=== PATIENT | male | born 1945 | race African-American/Black ===

== ENCOUNTER → 2022-01-02 08:10 | Outpatient (BNVA) | payer MEDICARE, SELFPAY | PROVIDERS: PCP Internal Medicine; Visit Provider Psychiatry & Neurology Neurology | DX: R55 Syncope and collapse (principal) | CPT/HCPCS: 99202 ==

== ENCOUNTER 2022-02-22 06:03 | Outpatient (REF) | payer MEDICARE, SELFPAY ==
--- NOTE | 2022-02-22 06:15 | EEG_ITS ---
This is a 16-channel EEG with an EKG lead. The patient is reported awake and drowsy during the tracing. Background EEG rhythm is low amplitude fast with at times about 10 hertz low amplitude posterior alpha with no obvious asymmetry or paroxysmal tendency. Photic stimulation does not produce any significant abnormality. Hyperventilation is not performed. Cardiac lead does not reveal any significant abnormality. IMPRESSION: Unremarkable EEG. MD MARGARETH Estrada/JAYRO / [id number]
== END 2022-02-22 06:04 | disposition home or self-care (01) ==
LOC: HO.NEURO 06:03
PROVIDERS: PCP Internal Medicine; Visit Provider Psychiatry & Neurology Neurology
DX: R55 Syncope and collapse (principal)
CPT/HCPCS: 95819

== ENCOUNTER 2025-02-07 09:35 | Outpatient (AMB) | payer MEDICARE, SELFPAY ==
--- NOTE | 2025-02-07 10:25 | A.PHYSOV_ITS ---
Vital Signs 02/07/25 10:28 Height 5 ft 9 in Weight 220 lb BMI 32.5 Intake Visit Reasons: F/U after injection 12/31/2024 Intake Note: Patient is a 79 year old male in office today for a follow up after Right L4 Transforaminal Epidural Injection on 12/31/24. Grey Roll Man Required: No Allergies lisinopril Adverse Reaction (Severe, Verified 02/07/25 10:26) Unconscious HPI Comments Details: History of Present Illness The patient is a 79-year-old individual presenting with chronic low back pain and knee pain. The patient reports having received an injection in the back in December, which provided some relief for the leg pain associated with the back issue. Patient underwent right L4 TFESI with 50% reduction of his pain. The patient has been experiencing numbness in the leg for approximately 18 years, which was partially alleviated by the injection. The patient also reports knee pain, which used to be severe but has improved with increased activity and gardening. The patient has not had a knee injection before but agreed to receive one during this visit. Shoulder pain is also present, with some limitation in movement, although it has improved over time. The patient performs exercises to maintain shoulder function and agreed to receive an injection for the shoulder as well. The patient has a history of diabetes mellitus, which can be affected by steroid injections. The patient is aware of the potential for increased blood sugar levels following the injections and has been managing glucose levels with tablets. Patient is requesting left glenohumeral joint injection as well as right knee intra-articular injection. Pain Description - Chronic low back pain with associated leg numbness for 18 years, partially relieved by injection - Knee pain, previously severe, improved with activity - Shoulder pain with limited movement, improved over time Procedure: Right L4 TF a 12/31/2024 50% reduction of his pain Left glenohumeral joint injection 02/07/2025 Right knee corticosteroid injection 02/07/2025 [facility] Medical History (Updated 02/07/25 @ 16:31 by ALEX Rees) Syncope and collapse Cardiomyopathy Obesity Combined hyperlipidemia Retinopathy HTN (hypertension) Diabetes Family History (Updated 01/02/22 @ 08:26 by Herminia Martinez CMA) Mother Diabetes Father No problems noted. Social History (Updated 02/03/25 @ 17:08 by Brisa Clements MA) Household Members: Spouse Alcohol intake: current Alcohol intake frequency: other Alcohol type: beer Patient Tobacco Use Status: Former Tobacco user Current occupational status: retired Review of Systems Narrative Review of Systems - Musculoskeletal: Reports chronic low back pain, knee pain, and shoulder pain with limited movement - Endocrine: Reports diabetes mellitus with current blood sugar level of 196 mg/dL Physical Exam Exam Exam: Physical Exam Examination of his left shoulder: He is tender to the lateral deltoid. He has improved range of motion of 160 degrees for flexion and 30 degrees external rotation. Negative empty can test. Lumbar Spine: Examination of his lumbar spine, there is no visible swelling or deformity. He is nontender to palpation to his lumbar facets. Full range of motion of his lumbar spine. He denies any increase in pain with facet loading. Special Tests: Lhermittes sign was negative Heel Toe walk is normal Left straight leg raise: Negative Right straight leg raise: Negative Special tests Zander test is negative Ganslen's test is negative SI Joint compression test negative Amarjit test negative Piriformis stretch is negative Lower Extremities: Full range of motion bilateral lower extremities. No calf pain or edema. Neuro: Sensation: Intact to lower extremities bilaterally Strength L2 (Psoas): 5/5 on the left and 5/5 on the right. L3 (Quads): 5/5 on the left and 5/5 on the right. L4 (Ant tibialis): 5/5 on the left and 5/5 on the right. L5 (EHL) 5/5 on the left and 5/5 on the right. S1 (Gastroc): 5/5 on the left and 5/5 on the right. DTR L4: (Patellar) Left 2 Right 2 S1: (Achilles) Left 1 Right 1 Babinski Downgoing No pathologic clonus. No involuntary movement. Vital Signs: BMI result Body Mass Index 32.5 Office Procedures AMB Knee Injection AMB Knee Injection Procedure Details: Right Knee injection: The risks, benefits and complications of the right knee injection were discussed with the patient including but not limited to increased serum glucose, infection, nerve pain, fat atrophy, pigment augmentation, bleedin g and pain. All questions were answered to the patient's satisfaction. Verbal consent was obtained. The patient was eager to proceed. Using aseptic technique with Betadine, ethyl chloride was then used to desensitize the skin. Using a 22-gauge needle 40 mg of Kenalog and 3 mL 2% lidocaine were injected into the knee joint. A Band-Aid was applied. Patient tolerated the procedure well without immediate complication. Postinjection instructions were given. Knee Injection - : Right All charges added?: Procedure code (CPT) selection complete AMB Shoulder Injection AMB Shoulder Injection Procedure Details: Left Glenohumeral joint injection: The patient was educated about risks, complications and benefits including but not limited to increased serum glucose, infection, nerve damage, bleeding, tendon/ligament damage and pain. We agree with a glenohumeral injection is the next best step in the treatment plan. Verbal consent was obtained. Using aseptic technique, the skin was cleansed with Betadine. Ethyl chloride was used to desensitize the skin. Using a posterior approach, 40 mg of Kenalog and 3 mL 2% lidocaine were injected using a 25-gauge inch and a half needle into the joint. The patient tolerated the procedure well without immediate complication. Postinjection instructions were given. Shoulder Injection - : Left All charges added?: Procedure code (CPT) selection complete Office Meds Kenalog 40 mg/mL suspension for injection Performing Provider: ALEX Rees Performing Location: [facility] Administered by: ALEX Rees on 02/07/25 16:39 Dose Route Admin Location Dispensed Lot Number Expiration Date [facility] Machine Printer 40 mg intra-articular 1 mL [id number] [employer] Total Dispensed Waste 1 mL 0 % lidocaine (PF) 20 mg/mL (2 %) injection solution Performing Provider: ALEX Rees Performing Location: [facility] Administered by: ALEX Rees on 02/07/25 16:39 Dose Route Admin Location Dispensed Lot Number Expiration Date [facility] Machine Printer 60 mg intra-articular 50 mL [id number] Total Dispensed Waste 50 mL 0 % Kenalog 40 mg/mL suspension for injection Performing Provider: ALEX Rees Performing Location: [facility] Administered by: ALEX Rees on 02/07/25 16:37 Dose Route Admin Location Dispensed Lot Number Expiration Date [facility] Machine Printer 40 mg intra-articular 1 mL [id number] [employer] Total Dispensed Waste 1 mL 0 % lidocaine (PF) 20 mg/mL (2 %) injection solution Performing Provider: ALEX Rees Performing Location: [facility] Administered by: ALEX Rees on 02/07/25 16:37 Dose Route Admin Location Dispensed Lot Number Expiration Date [employer] Machine [employer]inter 60 mg intra-articular 5 mL [id number] Total Dispensed Waste 5 mL 0 % Assessment & Plan Assessment & Plan (1) Adhesive capsulitis of left shoulder: Code(s): M75.02 - Adhesive capsulitis of left shoulder Category: Medical (2) Osteoarthritis of right knee: Code(s): M17.11 - Unilateral primary osteoarthritis, right knee Category: Medical Qualifiers: Osteoarthritis type: primary Qualified Code(s): M17.11 - Unilateral primary osteoarthritis, right knee (3) Lumbar radiculopathy: Code(s): M54.16 - Radiculopathy, lumbar region Category: Medical Plan Pain Management - Affect: Pain impacts daily activities but is managed with injections and exercise - Analgesia: Injections provide relief; current pain levels are manageable - Adverse Effects: Potential for increased blood sugar levels due to injections - Activities of Daily Living: Patient remains active with gardening and exercises for shoulder mobility - Aberrant Drug Related Behaviors: None reported Plan Patient was informed and verbally consented to the use of an ambient scribe for clinic note documentation during this visit. 1. Chronic Low Back Pain The patient received an injection in December for chronic low back pain, which provided some relief for associated leg pain. The plan is to monitor the patient's response to the injection and consider further interventions if necessary. 2. Knee Pain The patient agreed to receive a knee injection during this visit to address the pain, which has improved with increased activity. The plan includes monitoring the patient's response to the injection and adjusting treatment as needed. 3. Shoulder Pain The patient agreed to receive a shoulder injection to manage pain and improve mobility. The plan is to assess the effectiveness of the injection and consider additional treatments if required. 4. Diabetes Mellitus The patient is aware of the potential for increased blood sugar levels following steroid injections and is managing glucose levels with tablets. The plan includes monitoring blood sugar levels closely and contacting the primary care physician if levels exceed 300 mg/dL. Thank you for allowing me to participate in the care of your patient. Orders: Orders AMB Shoulder Injection Today M75.02 - Adhesive capsulitis of left shoulder AMB Knee Injection Today M17.11 - Unilateral primary osteoarthritis, right knee Coding Level of Care Code Tele Est Pt Level 3 (33629) Diagnoses Adhesive capsulitis of left shoulder M75.02 Primary osteoarthritis of right knee M17.11 Osteoarthritis type: primary Lumbar radiculopathy M54.16 CPT Codes AMB Knee Injection - Hip/Bursa Injection - : Right ([id number]) AMB Shoulder Injection - Hip/Bursa Injection - : Left ([id number])
[2025-02-07 10:28] VITALS: BMI 32.5
--- OUTSIDE RECORDS SUMMARY | 2025-02-07 11:03 | XMS_ITS | Clinical Summary ---
Author Organization [facility] Address [address] [place] [address] Care Team Providers Care Feeder Switchboard Operator Name Role Phone Juan Carlos Moore MD Primary Care Provider [phone] Allergies Active Allergy Reactions Criticality Noted Date Comments Lisinopril 01/01/2022 Medications Medication Sig Dispensed Refills Start Date End Date Status omeprazole (PriLOSEC) 20 MG capsule Take 1 capsule (20 mg total) by mouth daily. 0 Active folic acid (FOLVITE) tablet 1 mg Take 1 tablet (1 mg total) by mouth daily. 0 Active insulin glargine (LANTUS SOLOSTAR) injection 100 units/mL Inject under the skin. 0 Active losartan (COZAAR) 100 MG tablet Take 1 tablet (100 mg total) by mouth daily. 0 Active atorvastatin (LIPITOR) tablet 20 mg Take 1 tablet (20 mg total) by mouth daily. 0 Active metFORMIN (GLUCOPHAGE) tablet 1000 mg Take 1 tablet (1,000 mg total) by mouth 2 (two) times a day with meals. 0 Active insulin lispro (HumaLOG) injection 100 units/mL Inject under the skin 3 (three) times a day before meals. 0 Active dulaglutide (TRULICITY) 1.5 MG/0.5ML subcutaneous pen-injector Inject under the skin. 0 Active dilTIAZem (CARDIZEM CD) 180 MG 24 hr capsule Take 1 capsule (180 mg total) by mouth daily. 0 Active furosemide (LASIX) 20 MG tablet Take 1 tablet (20 mg total) by mouth 2 (two) times a day. 0 Active finasteride (PROSCAR) 5 MG tablet Take 1 tablet (5 mg total) by mouth daily. 0 Active ondansetron (ZOFRAN) 4 MG tablet Take by mouth. 0 Active indapamide (LOZOL) 1.25 MG tablet Take 1 tablet (1.25 mg total) by mouth every morning. 0 Active sertraline (ZOLOFT) 50 MG tablet Take 1 tablet (50 mg total) by mouth daily. 0 Active spironolactone (ALDACTONE) 12.5 MG split tablet Take 2 split tablet (25 mg total) by mouth daily. 0 Active vitamin D3 (cholecalciferol) 25 MCG (1000 UT) tablet Take 1 tablet (25 mcg total) by mouth daily. 0 Active [place]-3 Fatty Acids (Fish Oil) 1200 MG CPDR Take by mouth. 0 Active Multiple Vitamins-Minerals (Centrum Silver) tablet Take 1 tablet by mouth daily. 0 Active clotrimazole-betametha sone (LOTRISONE) cream Apply topically 2 (two) times a day. 0 Active Active Problems No known active problems Family History Medical History Relation Name Comments Diabetes Mother Hypertension Mother Relation Name Status Comments Mother Social History Tobacco Use Types Packs/Day Years Used Date Smoking Tobacco: Former Cigarettes 0.3 Smokeless Tobacco: Never Alcohol Use Standard Drinks/Week Comments Yes 1 (1 standard drink = 0.6 oz pur e alcohol) Sex and Gender Information Value Date Recorded Sex Assigned at Not on file Gender Identity Not on file Sexual Orientation Not on file Job Start Date Occupation Industry Not on file Not on file Not on file Last Filed Vital Signs Vital Sign Reading Time Taken Comments Blood Pressure 118/57 05/16/2022 9:19 AM EST Pulse 84 05/16/2022 9:19 AM EST Temperature 36.7 C (98 F) 05/16/2022 9:19 AM EST Respiratory Rate - - Oxygen Saturation 98% 05/16/2022 9:19 AM EST Inhaled Oxygen Concentration - - Weight 101.2 kg (223 lb 3.2 oz) 05/16/2022 9:19 AM EST Height 175.3 cm (5' 9 ) 05/16/2022 9:19 AM EST Body Mass Index 32.96 05/16/2022 9:19 AM EST Plan of Treatment Health Maintenance Due Date Last Done Comments Hepatitis C Screening 1945 Depression Screening 1957 BMI Counseling 1963 Preventative Health Evaluation 1963 Fall Risk Assessment 2010 RSV Adult > 60+ Yrs or (1 - 1-dose 75+ series) 2020 COVID-19 Vaccine ( season) 2024 08/20/2021, 12/11/2020, 05/16/2020, Additional history exists Influenza Vaccine (#1) 2024 2, 11/17/2018, 12/29/2017, Additional history exists DTap / Tdap / Td (3 - Td or Tdap) 08/29/2031 08/28/2021, 06/28/2011 Pneumococcal Vaccine Completed 06/28/2015, 06/28/19 12 Shingrix-Zoster Vaccine Completed 01/22/2022, 11/21 Hepatitis B Vaccines Aged Out No long er eligible based on patient's age to complete this topic RSV Ped < 20 months Aged Out No longe r eligible based on patient's age to complete this topic Care Teams Feeder Switchboard Operator Relationship Specialty Start Date End Date Juan Carlos Moore MD PCP - General Internal Medicine 02/27/22
--- OUTSIDE RECORDS SUMMARY | 2025-02-07 11:03 | XMS_ITS | Clinical Summary ---
Author Organization [address] [facility] Address [address] [place] [phone] Phone Care Team Providers Care Lead Electrician Name Role Phone Juan Carlos Moore MD Primary Care Provider [phone] Allergies Active Allergy Reactions Criticality Noted Date Comments Lisinopril 09/28/2012 Other Reaction(s): Numbness, tingling or swelling of the lips, tongue or mouth Medications cholecalciferol (VITAMIN D-3) 25 mcg (1,000 unit) tablet Take by mouth. Active timolol (TIMOPTIC) 0.5 % ophthalmic solution INSTILL 1 DROP INTO EACH EYE TWICE DAILY DIRECTED 06/26/19 24 Active blood-glucose meter kit To use to test blood sugar 02/27/20 16 Active blood sugar diagnostic (OneTouch Verio test strips) test strip USE 1 STRIP TO CHECK GLUCOSE 4 TIMES DAILY 400 each 02/19/20 24 Active carvediloL (COREG) 12.5 mg tablet TAKE 1 TABLET BY MOUTH TWICE DAILY WITH MEALS 180 tablet 2 03/18/19 25 Active finasteride (PROSCAR) 5 mg tablet Take 1 tablet by mouth once daily 90 tablet 1 04/13/19 25 Active insulin aspart (NovoLOG Flexpen U-100 Insulin) 100 unit/mL (3 mL) injection penIndications: Type II or unspecified type diabetes mellitus with ophthalmic manifestations, uncontrolled(25 0.52) (CMS/HCC V24, CMS/HCC V28) Inject 3 times a day with meals per scale: 90-119: 10 units;120-14 9: 20 units; 150-200: 22 units;201-25 0; 23 units; 251-300: 24 units; 301-350: 25 units; 351-400: 26 units, plus 3 extra units at dinner 15 mL 04/15/19 Active insulin degludec (TRESIBA FlexTouch U-200) 200 unit/mL (3 mL) CONCENTRATED injection pen 75 units in the morning and 65 units in the evening 45 mL 06/02/19 25 Active diclofenac (VOLTAREN) 1 % topical gel Apply 4 g topically 4 (four) times a day. 2 each 06/09/19 Active ketoconazole (NIZORAL) 2 % cream Apply topically 2 (two) times a day. 30 g 06/09/19 25 026 Active sertraline (ZOLOFT) 50 mg tablet Take 1 tablet (50 mg total) by mouth 1 (one) time each day. 90 tablet 07/02/19 25 Active dapagliflozin propanediol (FARXIGA) 10 mg tablet Take 1 tablet (10 mg total) by mouth 1 (one) time each day. 90 each 07/15/19 25 Active gabapentin (NEURONTIN) 100 mg capsule Take 1 capsule (100 mg total) by mouth at bedtime. 30 each 07/27/19 25 Active pen needle, diabetic 32 gauge x 5/32 needle USE 1 PEN NEEDLE FIVE TIMES DAILY 200 each 08/19/19 25 Active atorvastatin (LIPITOR) 20 mg tabletIndicatio ns:Hyperlipidem ia, unspecified Take 1 tablet (20 mg total) by mouth 1 (one) time each day. 90 tablet 08/31/19 25 Active metFORMIN (GLUCOPHAGE) 1,000 mg tablet Take 1 tablet by mouth twice daily 180 tablet 09/21/19 25 Active irbesartan (AVAPRO) 300 mg tablet Take 1 tablet by mouth once daily 90 tablet 09/21/19 25 Active folic acid (FOLVITE) 1 mg tablet Take 1 tablet by mouth once daily 90 tablet 1 09/21/19 25 Active omeprazole (PriLOSEC) [address] capsuleIndicati ons:Gastroesoph ageal reflux disease with esophagitis, unspecified whether hemorrhage,Naus ea Take 1 capsule (20 mg total) by mouth 1 (one) time each day. Do not crush or chew. 90 each 3 12/29/19 25 026 Active eplerenone (Inspra) 50 mg tablet Take 1 tablet (50 mg total) by mouth 1 (one) time each day in the evening. 90 each 01/13/20 25 Active acetaminophen Extra Strength 500 mg tablet TAKE 2 TABLETS BY MOUTH EVERY 6 HOURS NEEDED FOR MILD PAIN FOR UP TO 10 DAY 30 tablet 02/01/20 Active clotrimazole-be tamethasone (LOTRISONE) 1-0.05 % cream Apply topically 2 times daily. 03/29/19 12 Discontinued(Th erapy completed) eplerenone (INSPRA) 50 mg tablet Take 1 Tablet by mouth daily. 09/29/19 Discontinued(Th erapy completed) loratadine (CLARITIN) 10 mg tablet Take 1 Tablet by mouth daily. 03/24/19 24 025 Discontinued( erapy completed) insulin syringe-needle U-100 1/2 mL 27 gauge x 1/2 syringe 1 Device by Does not apply route 5 times daily. 11/02/19 21 025 Discontinued( erapy completed) indapamide (LOZOL) 1.25 mg tablet Take 1 tablet (1.25 mg total) by mouth 1 (one) time each day in the morning. 025 Discontinued( erapy completed) LORazepam (ATIVAN) 1 mg tablet TAKE 1 TABLET BY MOUTH ONE HOUR PRIOR TO MRI SCAN MAY REPEAT ONCE 08/03/19 25 025 Discontinued(Th erapy completed) eplerenone (INSPRA) 25 mg tablet Take 1 tablet by mouth once daily 90 tablet 1 08/12/19 25 Discontinued(Do se adjustment) tiZANidine (ZANAFLEX) 4 mg tablet Take 1 tablet (4 mg total) by mouth every 8 (eight) hours for 4 days. 12 each 08/27/19 25 025 Discontinued(Th erapy completed) acetaminophen (TYLENOL) 500 mg tablet Take 2 tablets (1,000 mg total) by mouth every 6 (six) hours if needed for mild pain for up to 10 days. 30 tablet 10/06/19 25 025 Discontinued loperamide (IMODIUM A-D) 2 mg tablet Take 1 tablet (2 mg total) by mouth 4 (four) times a day if needed for diarrhea. 120 tablet 12/08/19 25 025 Discontinued(Th erapy completed) Active Problems Problem Noted Date Diagnosed Date Candidiasis of esophagus ([facility] V24, [facility] V 28) 12/17/2023 Chronic gastritis 12/17/2023 Colon polyps 12/17/2023 Fatigue 12/17/2023 H. pylori infection 12/17/2023 Nausea and vomiting 12/17/2023 Anxiety 06/18/2023 Nocturia 06/18/2023 Recurrent major depressive d isorder, in full remission ([facility] V24) 06/18/2023 Seasonal allergies 06/18/2023 Cardiomyopathy ([facility] V24, [facility] V28) 2021 Overview (12/17/2023): Card MRI 11/2021 LVEF 45%, mild concentric LVH, mid septum fibrosis. No evidence of HCM or infiltrative cardiomyopathy. Last Assessment & Plan: I will repeat PYP and AL amyloid work-up. We will touch base with oncology team after result. CHF (congestive heart failure) ([facility] V24, [facility] V28) 10/11/2021 Overview (12/17/2023): Last Assessment & Plan: Euvolemic today. Continue low-dose furosemide. HFrEF (heart failure with re duced ejection fraction) ([facility] V24, [facility] V28) 08/13/2021 Overview (12/17/2023): Last Assessment & Plan: No evidence of volume overload. We will consider to switch losartan to Entresto. Shortness of breath on exertion 06/23/2020 Overview (12/17/2023): Last Assessment & Plan: Shortness of breath with exertion has been present for a few months. He had a multiple risk factors, especially with longstanding diabetes and hypertension. However like to schedule exercise nuclear perfusion stress test. He has no significant murmur by physical exam. He was reported to have moderate LVH from echo 7 years back. I would like to repeat another study to assess LVH and left ventricular diastolic function. Syncope 06/19/2020 Overview (12/17/2023): Last Assessment & Plan: I suspect syncope was related to the combination of increased vagal tone post urination and dehydration. Obesity (BMI 30-39.9) 09/02/2017 Hypertensive cardiopathy 06/02/2013 Overview (12/17/2023): Last Assessment & Plan: Recurrent multiple medications. Pre-ulcerative corn or callous 04/08/2012 Type II or unspecified type diabetes mellitus with ophthalmic manifestations, uncontrolled(250.52) ([facility] V24, CMS/[facility] V28) 11/11/2011 Diabetic retinopathy, nonpro liferative, mild (CMS/HCC V24, CMS/HCC V28) 11/11/2011 Overview (12/17/2023): MNPDR of left eye only per note of Dr. Ruiz on 06/25/2011. Microalbuminuria 11/11/2011 Tubular adenoma of colon 04/12/2011 Glaucoma 03/29/2011 HTN (hypertension) 03/29/2011 Overview (12/17/2023): Last Assessment & Plan: Well-controlled. Continue current regimen. Hyperlipidemia 03/29/2011 Encounters Date Type Department Care Team Description 01/07/2025 9:00 AM EDT Office Visit Orthopedic Surgery - [place] [address] 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 [address] [place] [phone] Vani Silva NP 11/16/2024 8:30 AM EDT Office Visit Endocrinology [address] [phone] Melissa Ortiz PA Type II or unspecified type diabetes mellitus with ophthalmic manifestations, uncontrolled(250.52) ([facility] V24, [facility] V28) (Primary Dx); Primary hypertension; Pure hypercholesterolemia from Last 3 Months Immunizations Immunization Administration Dates Next Due Influenza Quadravalent, 0.5m l (Fluzone High-dose) 65yo and older 12/09/2024,11/28/2023 Influenza trivalent, 0.5mL ( Fluzone High-dose) 65yo and older 12/01/2021,11/17/2018,12/29/2017,11/28,11/28/2015,11/25/2014 Influenza trivalent, with pr eservative (Fluzone; Afluria) 6mo and older 12/24/2013,11/17/2012,02/03/2012 Influenza, Unspecified 02/12/2021 Pfizer (ages 12 & older) Biv alent, COVID-19 01/01/2022 Pfizer SARS-CoV-2 COVID-19, mRNA, LNP-S, preservative free 11/28/2023,08/20/2021,12/11/2020,05/16,04/25/2020 Pneumococcal conjugate 13 va lent (Prevnar 13, PCV13) 2mo and older 06/28/2015 Pneumococcal polysaccharide 23 valent (Pneumovax 23) 2yo and older 06/28/2011 Td Tetanus diptheria (Tdvax) 7yo and older 08/28/2021 Tdap Tetanus diptheria acell ular pertussis (Boostrix; Adacel) 7yo and older 10/20/2016,06/28/2011 Zoster recombinant (Shingrix ) 19yo and older 01/22/2022,11/21/2021 Surgical History Surgery Date Site/Laterality Comments COLONOSCOPY 12/03/2010 PROCEDURE: HISTORICAL COLONOSCOPY; COMMENT: Dr Huitron: small tub adenoma@30cm OTHER SURGICAL HISTORY Left, -1986 PROCEDURE: IL OPTX PROX HUMERAL FX W/INT FIXJ RPR TUBEROSITY; COMMENT: also age 10 left arm Fx ?ulna?radius unknown COLONOSCOPY 03/05/2016 PROCEDURE: HISTORICAL COLONOSCOPY; COMMENT: Tomy; tubular adenomas x 2; poor prep. COLONOSCOPY 06/24/2016 PROCEDURE: HISTORICAL COLONOSCOPY; COMMENT: RBMG; no polyps. ESOPHAGOGASTRODUODENOSCOPY PROCEDURE: IL EGD TRANSORAL BIOPSY SINGLE/MULTIPLE; COMMENT: Performed on August 02, 2021 with colonoscopy COLONOSCOPY PROCEDURE: HISTORICAL COLONOSCOPY; COMMENT: Performed with EGD on August 02, 2021 Medical History Medical History Date Comments Type 2 diabetes mellitus (CM S/HCC V24, CMS/HCC V28) DX:Type 2 diabetes mellitus (HCC) Tubular adenoma DX:Tubular adeno ma HTN (hypertension) DX:HTN (hyper tension) Hyperlipidemia DX:Hyperlipidemi a Hypertensive cardiopathy DX:Hype rtensive cardiopathy Syncope DX:Syncope Glaucoma DX:Glaucoma Tubular adenoma of colon 04/12/2011 DX:Tubu lar adenoma of colon Humerus distal fracture left, age 10 DX:Humer us distal fracture 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 pylori infection DX:H. pylori infection Fatigue DX:Fatigue Chronic gastritis DX:Chronic gas tritis Nausea and vomiting DX:Nausea an d vomiting Lightheadedness DX:Lightheadedne ss Cardiomyopathy (CMS/HCC V24, CMS/HCC V28) DX:Cardiomyopathy (HCC) History of heart failure DX:Hist ory of heart failure Anxiety 06/18/2023 DX:Anxiety Nausea DX:Nausea Postural dizziness with presyncope DX:Postural dizziness with presyncope Family History Medical History Relation Name Comments Diabetes Brother 1 Diabetes Brother 2 Diabetes Brother 3 Diabetes Brother 4 Prostate cancer Father Diabetes Mother Hyperlipidemia Mother Hypertension Mother Diabetes Sister Hyperlipidemia Sister Breast cancer Neg Hx Relation Name Status Comments Brother 1 Brother 2 Brother 3 Brother 4 Daughter x4 1 Father (Age 79) couldn't u rinate ([place]) Maternal Grandfather (Age 116) Mother (Age 74) diabetes, HTN Sister Social History Tobacco Use Types Packs/Day Years Used Date Smoking Tobacco: Former Cigarettes 0.3 40.2 0 1975 - 06/28/2015 Smokeless Tobacco: Never Tobacco Cessation:Counseling Given: Not Answered Alcohol Use Standard Drinks/Week Comments Yes 2 (1 standard drink = 0.6 oz pur e alcohol) Housing Instability Answer Date Recorde d Are you worried that in the next 2 months you may not have stable housing? No 01/26/2024 Food Access & Nutrition Answer Date Rec orded Do you have access to a vari ety of food including fruits and vegetables? Yes 01/26/2024 Health Literacy Answer Date Recorded How often do you need to hav e someone help you when you read instructions, pamphlets, or other written material from your doctor or pharmacy? Never 01/26/2024 Caregiver: How often do you need to have someone help you when you read instructions, pamphlets, or other written material from your doctor or pharmacy? Not on file 01/26/2024 Financial Risk Answer Date Recorded How hard is it for you to pa y for the very basics like food, housing, medical care, and air conditioning / heating? Not very hard 01/26/2024 Transportation Answer Date Recorded Has the lack of transportati on kept you from meetings, work, or from getting things needed for daily living? No Has the lack of transportati on kept you from medical appointments or from getting medications? No 01/26/2024 Social Isolation Answer Date Recorded How often do you feel lonely or isolated from th ose around you? Never 01/26/2024 Food Risk Answer Date Recorded Within the past 12 months we worried whether our food would run out before we got money to buy more. Never true 01/26/2024 Within the past 12 months th e food we bought just didn't last and we didn't have money to get more. Never true 01/26/2024 Dependent Care Answer Date Recorded Do you need help finding or paying for care for your loved ones. For example, child and adolescent psychologist or elderly care for an older adult? No 01/26/2024 Education Answer Date Recorded Do you think completing more education or training, like finishing a GED, going to college, or learning a trade, would be helpful for you? No 01/26/2024 Employment and Income Answer Date Recor ded During the last four weeks, have you been actively looking for work? No 01/26/2024 Living Situation Answer Date Recorded What is your living situation? Unrecognized valu e 01/26/2024 Sex and Gender Information Value Date Recorded Sex Assigned at Not on file Legal Sex Male 12:13 AM EST Gender Identity Not on file Sexual Orientation Not on file Obstetrics History Last Filed Vital Signs Vital Sign Reading Time Taken Comments Blood Pressure 143/84 01/12/2025 10:47 AM EDT Pulse 60 11/16/2024 8:52 AM EDT 5 min Temperature 35.6 C (96 F) 11/16/2024 8:49 AM EDT Respiratory Rate 16 10/05/2024 12:35 PM EDT Oxygen Saturation 99% 08/26/2024 4:03 AM EDT Inhaled Oxygen Concentration - - Weight 98.5 kg (217 lb 3.2 oz) 11/16/2024 8:49 A M EDT Height 175.3 cm (5' 9 ) 11/16/2024 8:49 AM EDT Body Mass Index 32.07 11/16/2024 8:49 AM EDT Plan of Treatment Upcoming Encounters Date Type Department Care Team (Late st Contact Info) Description 02/16/2025 9:30 AM EST Office Visit Internal Medicine - [address] [phone] Juan Carlos Moore MD [address] [place] [phone] 02/24/2025 9:30 AM EST Office Visit Endocrinology [address] [phone] Melissa Ortiz PA [address] [place] [phone] 03/01/2025 9:00 AM EST Office Visit Orthopedic Surgery - [place] [address] [place] [phone] Jose M Lamb PA [address] [place] [address] 03/08/2025 11:30 AM EST Medication Management Adult Medicine [facility] [address] [place] [phone] Meagan Luong, PharmD [address] [place] [address] 05/11/2025 8:40 AM EST Office Visit Gastroenterology - [address] [phone] Vani Silva, EMILY [address] [phone] Health Maintenance Due Date Last Done Comments Diabetes: Annual Foot Exam 1955 Medicare Annual Wellness Visit 01/17/2024 01/16/2023 Depression Screening 03/17/2024 01/26/2024, 01/17/20 Diabetes: Annual Retina Eye Exam 12/29/2024 12/30/2023 Diabetes: Annual Urine Albumin-Creatinine Ratio (uACR) 01/25/2025 01/26/2024, 07/07/2023 Falls Risk Assessment 01/25/2025 01/26/2024, 023 Social Influencers of Health Screening 01/25/2025 01/26/2024 Diabetes: Blood Sugar Control Test (HGBA1C) 05/16/2025 11/16/2024, 07/12/2024, 01/26/2024, Additional history exists COVID-19 Vaccine ( season) 2025 12/09/2024, 11/28/2023, 03/02/2023, Additional history exists Diabetes: Annual GFR (Glomerular Filtration Rate) 08/26/2025 08/26/2024, 06/08/2024, 01/26/2024, Additional history exists Hypertension/CHF/CAD Annual BMP Blood Test 08/26/2025 08/26/2024, 06/08/2024, 01/26/2024, Additional history exists Colorectal Cancer Screening: Colonoscopy 08/02/2026 08/02/2021 Cholesterol Screening (Lipid Panel) 07/26/2029 07/26/2024, 01/26/2024, 07/07/2023 DTaP,Tdap,and Td Vaccines (4 - Td or Tdap) 08/29/2031 08/28/2021, 10/20/2016, 06/28/2011 Hepatitis C Screening Completed 02/13/2013 Pneumococcal Vaccine: 50+ Years Completed 06/28/2015, 06/28/2011 Zoster Vaccines Completed 01/22/2022, 11/21/2021 RSV Immunization Adult Patients Completed 07/08/2024 Influenza Vaccine Completed 12/09/2024, , 03/02/2023, Additional history exists HIB Vaccines Aged Out No longer eligi ble based on patient's age to complete this topic HPV Vaccines Aged Out No longer eligi ble based on patient's age to complete this topic Hepatitis A Vaccines Aged Out No long er eligible based on patient's age to complete this topic Hepatitis B Vaccines Aged Out No long er eligible based on patient's age to complete this topic IPV Vaccines Aged Out No longer eligi ble based on patient's age to complete this topic MMR Vaccines Aged Out No longer eligi ble based on patient's age to complete this topic Meningococcal ACWY Vaccine Aged Out N o longer eligible based on patient's age to complete this topic Meningococcal B Vaccine Aged Out No l onger eligible based on patient's age to complete this topic RSV Immunization Patients Under 20 months Aged Out No longer eligible based on patient's age to complete this topic Varicella Vaccines Aged Out No longer eligible based on patient's age to complete this topic Procedures Procedure Name Priority Date/Time Associated Diagnosis Comments IL ARTHROCENTESIS/ASPIRAT ION/INJECTION MAJOR JOINT/BURSA W/O U/S GUIDANCE Routine 01/07/2025 9:00 AM EDT 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 ([facility] V24, [facility] V28) Acute bursitis of left shoulder HEMOGLOBIN A1C Routine 11/16/2024 9:39 AM EDT Type II or unspecified type diabetes mellitus with ophthalmic manifestations, uncontrolled(250.52 ) ([facility] V24, [facility] V28) PROSTATE SPECIFIC ANTIGEN SCREEN Routine 11/16/2024 9:39 AM EDT Screening PSA (prostate specific antigen) COMPREHENSIVE METABOLIC PANEL STAT 08/26/2024 4:17 AM EDT LIPID PANEL WITH REFLEX TO DIRECT LDL Routine 07/26/2024 9:28 AM EDT Type II or unspecified type diabetes mellitus with ophthalmic manifestations, uncontrolled(250.52 ) (CMS/[facility] V24, [facility] V28) MICROALBUMIN CREATININE URINE RATIO Routine 01/26/2024 10:09 AM EST Type II or unspecified type diabetes mellitus with ophthalmic manifestations, not stated as uncontrolled(250.50 ) (CMS/[facility] V24, CMS/[facility] V28) DIABETES EYE EXAM Routine 12/30/2023 DEPRESSION SCREENING Routine 01/16/2023 FALLS RISK ASSESSMENT Routine 01/16/2023 COLONOSCOPY Routine 08/02/2021 HEPATITIS C SCREENING Routine 02/13/2013 from Last 3 Months or Most Recently Relevant to Health Maintenance Results * IL ARTHROCENTESIS/ASPIRATION/INJECTION MAJOR JOINT/BURSA W/O U/S GUIDANCE (01/07/2025 9:00 AM EDT) Jose M Mccray PA - 01/07/2025 9:00 AM EDT ALEX Ballesteros 01/07/2025 11:01 AM L Inj/Asp: L subacromial bursa Indications: pain Details: 22 G needle, posterior approach Medications: 40 mg triamcinolone acetonide 40 mg/mL Outcome: tolerated well, no immediate complications Site was prepped in standard fashion using alcohol swab, sterile technique was used to perform the injection, the patient tolerated the procedure well and a band-aid dressing was applied Informed Consent: Site: Left subacromial Laterality: Left Relevant images/test results available and reviewed: yes Health status cleared: Yes Procedure/treatment, purpose, treatment alternatives, risks/potential complications and benefits explained: yes Risk/complications/benefits details: Risk/complications/benefits details: Risks and benefits of corticosteroid injection were discussed, including risk of pain, bleeding, infection, tissue attenuation, tendon rupture, changes in skin color, and injury to surrounding structures such as arteries, veins and nerves. We also discussed the patient may develop worsening pain for a few days before having improvement in their symptoms. Patient questions answered: yes Patient agrees, verbalizes understanding, and wants to proceed: yes Consent given by: Patient Informed consent discussion completed by Physician/PANCHO with patient: Verbal Pre-procedure timeout performed: yes Jose M JOHNSON IN CLINIC/BEDSIDE ORDERABLES Fi nal Result * Prostate specific antigen screen (11/16/2024 9:39 AM EDT) Pathologist [facility] PSA 0.76 0.00 - 4.00 ng/mL LAB CHEMISTRY METHOD 11/16/2024 2:17 PM EDT [facility] Blood Venous blood specimen / Unknown Venipuncture / Unknown 11/16/2024 9:39 AM EDT 11/16/2024 9:39 AM EDT Narrative [facility] - 11/16/2024 2:17 PM EDT The Siemens Advia Centaur Chemiluminescent Immunoassay is used. Results obtained with different assay methods or kits cannot be used interchangeably. Results cannot be interpreted as absolute evidence of the presence or absence of malignant disease. Juan Carlos Moore MD LAB BLOOD ORDERABLES Final Res ult [facility] [address] [place] [address], * (ABNORMAL) Hemoglobin A1c (11/16/2024 9:39 AM EDT) Pathologist [facility] Hemoglobin A1C 8.5(H) <6.5 % LAB CHEMISTRY METHOD 11/16/2024 2:21 PM EDT [facility] Mean Bld Glu Estim. 197 mg/dL LAB CHEMISTRY METHOD 11/16/2024 2:21 PM EDT [facility] Blood Venous blood specimen / Unknown Venipuncture / Unknown 11/16/2024 9:39 AM EDT 11/16/2024 9:39 AM EDT us Melissa JOHNSON LAB BLOOD ORDERABLES Final Result [facility] [address] [place] [address], * (ABNORMAL) Comprehensive metabolic panel (08/26/2024 4:17 AM EDT) Sodium 138 133 - 145 mmol/L LAB CHEMISTRY METHOD 08/26/2024 5:24 AM [facility] Potassium 4.8 3.5 - 5.5 mmol/L LAB CHEMISTRY METHOD 08/26/2024 5:24 AM [facility] Chloride 103 96 - 110 mmol/L LAB CHEMISTRY METHOD 08/26/2024 5:24 AM [facility] CO2 27 21 - 32 mmol/L LAB CHEMISTRY METHOD 08/26/2024 5:24 AM [facility] Anion Gap 8 3 - 11 LAB CHEMISTRY METHOD 08/26/2024 5:24 AM [facility] Glucose 106(H) 70 - 100 mg/dL LAB CHEMISTRY METHOD 08/26/2024 5:24 AM [facility] BUN 20 5 - 25 mg/dL LAB CHEMISTRY METHOD 08/26/2024 5:24 AM [facility] Creatinine 1.08 0.70 - 1.30 mg/dL LAB CHEMISTRY METHOD 08/26/2024 5:24 AM [facility] eGFR 70 >=60 mL/min/1. 73m2 LAB CHEMISTRY METHOD 08/26/2024 5:24 AM [facility] Comment:Calculation based on the Chronic Kidney Disease Epidemiology Collaboration (CKD-EPI) equation refit without adjustment for race. BUN/Creatinine Ratio 18.5 LAB CHEMISTRY METHOD 08/26/2024 5:24 AM [facility] Calcium 9.8 8.5 - 10.5 mg/dL LAB CHEMISTRY METHOD 08/26/2024 5:24 AM [facility] AST (SGOT) 34 10 - 42 unit/L LAB CHEMISTRY METHOD 08/26/2024 5:24 AM [facility] ALT (SGPT) 40 10 - 60 unit/L LAB CHEMISTRY METHOD 08/26/2024 5:24 AM [facility] Alkaline Phosphatase 61 42 - 121 unit/L LAB CHEMISTRY METHOD 08/26/2024 5:24 AM [facility] Total Protein 7.0 6.0 - 8.0 g/dL LAB CHEMISTRY METHOD 08/26/2024 5:24 AM [facility] Albumin 3.5 3.2 - 5.0 g/dL LAB CHEMISTRY METHOD 08/26/2024 5:24 AM [facility] Total Bilirubin 0.4 0.0 - 1.4 mg/dL LAB CHEMISTRY METHOD 08/26/2024 5:24 AM [facility] Blood Venous blood specimen / Unknown Venipuncture / Unknown 08/26/2024 4:17 AM EDT 08/26/2024 4:22 AM EDT us Inder La MD LAB BLOOD ORDERABLES Final Resu lt [facility] [address] [place] [address], * (ABNORMAL) Lipid panel with reflex to direct LDL (07/26/2024 9:28 AM EDT) Cholesterol 239(H) 0 - 200 mg/dL LAB CHEMISTRY METHOD 07/26/2024 12:22 PM [facility] Triglycerides 194(H) 0 - 150 mg/dL LAB CHEMISTRY METHOD 07/26/2024 12:22 PM EDT [facility] HDL 59 >=40 mg/dL LAB CHEMISTRY METHOD 07/26/2024 12:22 PM EDT [facility] LDL Calculated 141(H) 0 - 100 mg/dL LAB CHEMISTRY METHOD 07/26/2024 12:22 PM EDT [facility] VLDL Cholesterol Jatin 38.8 mg/dL LAB CHEMISTRY METHOD 07/26/2024 12:22 PM EDT [facility] Non HDL Chol. (LDL+VLDL) 180(H) <145 mg/dL LAB CHEMISTRY METHOD 07/26/2024 12:22 PM EDT [facility] Chol/HDL Ratio 4.1 0.0 - 4.4 LAB CHEMISTRY METHOD 07/26/2024 12:22 PM EDT [facility] Blood Venous blood specimen / Unknown Venipuncture / Unknown 07/26/2024 9:28 AM EDT 07/26/2024 9:28 AM EDT us Juan Carlos Moore MD LAB BLOOD ORDERABLES Final Res ult [facility] [address] [place] [address], * (ABNORMAL) Microalbumin creatinine urine ratio (01/26/2024 10:09 AM EST) Creatinine, Urine 185.0 mg/dL LAB CHEMISTRY METHOD 01/26/2024 12:28 PM EST [facility] Microalb, Ur 653.0(H) 0.0 - 29.0 mg/L LAB CHEMISTRY METHOD 01/26/2024 12:28 PM EST [facility] Microalb/Crea t Ratio 353(H) <30 mg/g creat LAB CHEMISTRY METHOD 01/26/2024 12:28 PM EST [facility] Urine Urine specimen obtained by clean catch procedure / Unknown Non-blood Collection / Unknown 01/26/2024 10:09 AM EST 01/26/2024 10:09 AM EST Juan Carlos Moore MD LAB URINE ORDERABLES Final Res ult [facility] [address] [place] [address], * Diabetes Eye Exam (12/30/2023) [facility] Diabetes: Annual Retina Eye Exam abstract [facility] Historical Provider HEALTH MAINTENANCE Final Result * Falls Risk Assessment (01/16/2023) [facility] Falls Risk Assessment Abstracted Historical Provider HEALTH MAINTENANCE Final Result * Depression Screening (01/16/2023) [facility] Depression Screening Abstracted Historical Provider HEALTH MAINTENANCE Final Result * Colonoscopy (08/02/2021) [facility] Colonoscopy No Interpretation , Abstracted Anatomical Region Laterality Modality Other Historical Provider HEALTH MAINTENANCE Final Result * Hepatitis C Screening (02/13/2013) [facility] Hepatitis C Screening Abstracted Historical Provider HEALTH MAINTENANCE Final Result from Last 3 Months or Most Recently Relevant to Health Maintenance Insurance [employer] - [place] [employer]ARE [employer]AGE Care Teams Lead Electrician Relationship Specialty Start Date End Date Juan Carlos Moore MD [address] [place] [id number] PCP - General Internal Medicine 01/20/24
== END 2025-02-07 11:16 | disposition home or self-care (01) ==
LOC: HO.HPHYS 09:35
PROVIDERS: PCP Internal Medicine; Visit Provider Physician Assistant
DX: M75.02 Adhesive capsulitis of left shoulder (principal); M17.11 Unilateral primary osteoarthritis, right knee; M54.16 Radiculopathy, lumbar region; E11.9 Type 2 diabetes mellitus without complications
CPT/HCPCS: 20610; 99213

== ENCOUNTER → 2025-02-07 09:35 | Outpatient (BNVA) | payer MEDICARE, SELFPAY | PROVIDERS: PCP Internal Medicine; Visit Provider Physician Assistant | DX: M75.02 Adhesive capsulitis of left shoulder (principal); M17.11 Unilateral primary osteoarthritis, right knee; M54.16 Radiculopathy, lumbar region; E11.9 Type 2 diabetes mellitus without complications | CPT/HCPCS: 20610; 99212; J2003; J3301 ==